=== PATIENT | female | born 1960 | race Caucasian/White ===

== ENCOUNTER 2020-11-28 10:28 | Inpatient (IN) | payer MEDICARE, MEDICAID ==
[~2020-11-28 10:28] MED LIST: Iopamidol-370 76% 500 ML 1 ML ONE
[2020-11-28] MEDS ORDERED: Ondansetron PF 4 MG/2 ML Vial ONE (11:52)
[2020-11-28] MEDS ORDERED: Fentanyl 100 MCG/2 ML VIAL ONE (11:52)
[2020-11-28 11:57] LABS: INR-International Normal Ratio 1.4; PTT 36.9 sec (22.9-36.1); Prothrombin Time 17.8 sec (12.0-14.7)
[2020-11-28 12:06] LABS: Albumin 2.6 g/dL (3.4-4.8)
[2020-11-28 12:07] LABS: Calcium 9.4 mg/dL (7.8-10.44); Chloride 93 mmol/L (98-107); Potassium 5.7 mmol/L (3.5-5.1); Sodium 131 mmol/L (136-145)
[2020-11-28 12:08] LABS: Globulin 3.5 g/dL (2.4-3.5); Glucose 53 mg/dL (80-115); Protein, Total 6.1 g/dL (5.8-8.1)
[2020-11-28 12:09] LABS: Carbon Dioxide 18 mmol/L (23-31)
[2020-11-28 12:10] LABS: Anion Gap 26 mmol/L (10-20); Bilirubin, Total 4.5 mg/dL (0.2-1.2)
[2020-11-28 12:11] LABS: Alkaline Phosphatase 1031 U/L (40-110); Calc. Creatinine Clearance 0 mL/min (70-130)
[2020-11-28 12:12] LABS: BUN (Urea Nitrogen) 45 mg/dL (9.8-20.1)
[2020-11-28 12:13] LABS: AST (SGOT) 915 U/L (5-34); Magnesium 2.4 mg/dL (1.6-2.6)
[2020-11-28 12:14] LABS: ALT (SGPT) 255 U/L (8-55); Lipase 81 U/L (8-78)
[2020-11-28 12:40] LABS: Band 6 % (5-11); Hemoglobin 11.9 g/dL (12.0-16.0); Lymphocytes 8 % (21-51); MDiff Complete? YES; Mean Corpuscular HGB CONC 30.1 g/dL (32.0-36.0); Mean Corpuscular Hemoglobin 27.9 pg (27.0-31.0); Mean Corpuscular Volume 92.5 fL (78.0-98.0); Mean Platelet Volume 8.8 fL (7.4-10.4); Monocytes 6 % (0-10); Neutrophil 80 % (42-75); Platelet Count 260 thou/uL (130-400); RBC Distribution Width 16.2 % (11.5-14.5); Red Blood Cell (RBC) Count 4.26 mill/uL (4.20-5.40); White Blood Cell (WBC) Count 25.6 thou/uL (4.8-10.8)
[2020-11-28] MEDS ORDERED: diphenhydrAMINE 50 MG/ML VIAL ONE (12:41)
[2020-11-28] MEDS ORDERED: Dextrose 50% Abboject 50 ML SYRINGE ONE (12:41)
[2020-11-28] MEDS ORDERED: Famotidine/PF 20 mg/2ml Vial ONE (12:41)
[2020-11-28] MEDS ORDERED: methylPREDNISolone Sod Succ 40 MG VIAL ONE (12:41)
[2020-11-28 13:09] LABS: Alcohol Less than 10 mg/dL (Less than 10)
[2020-11-28 13:12] LABS: Acetaminophen Less than 6.0 mcg/mL (10.0-30.0)
[2020-11-28 13:13] LABS: Salicylate Less than 8.0 mg/dL (15.0-30.0)
[2020-11-28 13:31] LABS: Hep C IgG Ab Non-Reactive (NonReactive); Hep C Index 0.09 S/CO (0-0.79)
[2020-11-28 13:33] LABS: HBCM Index 0.08 S/CO (0-0.79); HBSAg Index 0.22 S/CO (0-0.99); Hep B Surf Ag Non-Reactive S/CO (NonReactive); Hepatitis B Core IgM Abs Non-Reactive (NonReactive)
[2020-11-28 13:51] LABS: Hep A IgM AB Non-Reactive (NonReactive); Hep A IgM S/CO 0.25 S/CO (0-0.79)
[2020-11-28] MEDS ORDERED: Vancomycin 1 GM/200 ML BAG ONE (14:22)
[2020-11-28] MEDS ORDERED: Sodium Bicarbonate 2.5 MEQ/5 ML VIAL ONE (15:27)
[2020-11-28] MEDS ORDERED: Calcium Chloride 1 GM/10 ML Abboject SYRINGE ONE (15:28)
[2020-11-28] MEDS ORDERED: Sodium Bicarb 50 MEQ/50 ML Abboject 8.4% SYRINGE ONE (15:28)
[2020-11-28] MEDS ORDERED: Albumin 25% 25 GM/100 ML BOT IVPB SCH (16:15)
[2020-11-28] MEDS ORDERED: cefTRIAXone\\ROCEPHIN 1 GM VIAL ONE (17:17)
[2020-11-28] MEDS: Sodium Chloride 0.9% 1,000 ML IV SCH (18:16)
[2020-11-28 18:41] LABS: Lactic Acid 4.4 mmol/L (0.5-2.2)
[2020-11-28] MEDS ORDERED: Sodium Chloride 0.9% 250 ML IV SCH (19:15)
[2020-11-28] MEDS: cefTRIAXone\\ROCEPHIN 1 GM in Sodium Chloride 0.9% 100 ML IVPB SCH (19:23)
[2020-11-28 19:57] LABS: Bacteria/HPF 4+ HPF (None Seen); Bilirubin Negative (Negative); Blood, Urine 2+ (Negative); Glucose, Urine (Dipstick) Normal (Negative); Ketone, Urine Negative (Negative); Leukocyte 25 Leu/uL (Negative); Nitrite Negative (Negative); Protein, Urine (Dipstick) 20 mg/dL (Neg-Trace); Specific Gravity, Urine 1.047 (1.002-1.036)
[2020-11-28 19:58] LABS: Clarity Cloudy (Clear); Urine Culture Reflex No No
[2020-11-28] MEDS: Famotidine 20 MG TAB PO SCH (21:56)
[2020-11-28] MEDS: Baclofen 10 MG TAB PO SCH (21:56)
[2020-11-28] MEDS: Pregabalin 75 MG CAP PO SCH (21:56)
[2020-11-29] MEDS ORDERED: Dextrose 50% Abboject 50 ML SYRINGE SLOW IVP PRN (02:12)
[2020-11-29] MEDS ORDERED: Dextrose 5% in Water 1,000 ML IV PRN (02:12)
[2020-11-29] MEDS: Sodium Chloride 0.9% 1,000 ML IV SCH ×2 (05:01→20:12)
[2020-11-29 05:49] LABS: ALT (SGPT) 232 U/L (8-55); AST (SGOT) 919 U/L (5-34); Albumin 2.6 g/dL (3.4-4.8); Alkaline Phosphatase 906 U/L (40-110); Anion Gap 21 mmol/L (10-20); BUN (Urea Nitrogen) 39 mg/dL (9.8-20.1); Bilirubin, Total 4.2 mg/dL (0.2-1.2); Calc. Creatinine Clearance 75 mL/min (70-130); Calcium 9.3 mg/dL (7.8-10.44); Carbon Dioxide 22 mmol/L (23-31); Chloride 95 mmol/L (98-107); Globulin 2.8 g/dL (2.4-3.5); Glucose 63 mg/dL (80-115); Potassium 4.6 mmol/L (3.5-5.1); Protein, Total 5.4 g/dL (5.8-8.1); Sodium 133 mmol/L (136-145)
[2020-11-29 05:57] LABS: Lactic Acid 4.2 mmol/L (0.5-2.2)
[2020-11-29 06:31] LABS: Band 11 % (5-11); Hemoglobin 10.5 g/dL (12.0-16.0); Lymphocytes 6 % (21-51); MDiff Complete? YES; Mean Corpuscular HGB CONC 30.3 g/dL (32.0-36.0); Mean Corpuscular Volume 92.4 fL (78.0-98.0); Metamyelocyte 1 % (0-0); Monocytes 7 % (0-10); Neutrophil 75 % (42-75); Nucleated RBC 1 % (0); Platelet Count 234 thou/uL (130-400); Polychromasia SLIGHT = 2-3 cells (100X) (0-2/hpf); RBC Distribution Width 16.8 % (11.5-14.5); Red Blood Cell (RBC) Count 3.73 mill/uL (4.20-5.40); White Blood Cell (WBC) Count 23.5 thou/uL (4.8-10.8)
[2020-11-29] MEDS: Baclofen 10 MG TAB PO SCH ×2 (08:20→20:11)
[2020-11-29] MEDS: Pregabalin 75 MG CAP PO SCH ×3 (08:20→20:12)
[2020-11-29] MEDS: Famotidine 20 MG TAB PO SCH ×2 (08:21→20:12)
[2020-11-29 08:58] LABS: SARS-CoV-2 PCR by NAA Not Detected (NotDetected)
[2020-11-29] MEDS ORDERED: Sodium Chloride 0.9% 500 ML IV SCH (09:45)
[2020-11-29 10:19] LABS: Lactic Acid 5.3 mmol/L (0.5-2.2)
[2020-11-29 10:20] LABS: ALT (SGPT) 242 U/L (8-55); AST (SGOT) 974 U/L (5-34); Albumin 2.6 g/dL (3.4-4.8); Alkaline Phosphatase 907 U/L (40-110); Bilirubin, Direct 3.4 mg/dL (0.1-0.3); Bilirubin, Total 4.1 mg/dL (0.2-1.2); Protein, Total 5.8 g/dL (5.8-8.1)
[2020-11-29] MEDS: cefTRIAXone\\ROCEPHIN 1 GM in Sodium Chloride 0.9% 100 ML IVPB SCH (17:46)
[2020-11-29] MEDS: Acetaminophen/Codeine 30-300mg Tablet PO PRN (20:53)
[2020-11-30] MEDS: Acetaminophen/Codeine 30-300mg Tablet PO PRN (04:59)
[2020-11-30 05:35] LABS: ALT (SGPT) 18 U/L (8-55); AST (SGOT) 20 U/L (5-34); Albumin 3.3 g/dL (3.4-4.8); Alkaline Phosphatase 77 U/L (40-110); Anion Gap 10 mmol/L (10-20); BUN (Urea Nitrogen) 6 mg/dL (9.8-20.1); Calc. Creatinine Clearance 97 mL/min (70-130); Calcium 8.1 mg/dL (7.8-10.44); Carbon Dioxide 24 mmol/L (23-31); Chloride 112 mmol/L (98-107); Globulin 2.4 g/dL (2.4-3.5); Glucose 88 mg/dL (80-115); Potassium 4.3 mmol/L (3.5-5.1); Protein, Total 5.7 g/dL (5.8-8.1); Sodium 142 mmol/L (136-145)
[2020-11-30 05:36] LABS: Lactic Acid 4.7 mmol/L (0.5-2.2)
[2020-11-30 06:42] LABS: Anisocytosis SLIGHT = 6-15 cells (100X) (0-5/hpf); Band 12 % (5-11); Hemoglobin 11.6 g/dL (12.0-16.0); Lymphocytes 10 % (21-51); MDiff Complete? YES; Mean Corpuscular HGB CONC 29.5 g/dL (32.0-36.0); Mean Corpuscular Hemoglobin 27.1 pg (27.0-31.0); Mean Platelet Volume 8.5 fL (7.4-10.4); Monocytes 4 % (0-10); Neutrophil 74 % (42-75); Platelet Count 209 thou/uL (130-400); RBC Distribution Width 17.3 % (11.5-14.5); Red Blood Cell (RBC) Count 4.27 mill/uL (4.20-5.40); White Blood Cell (WBC) Count 24.8 thou/uL (4.8-10.8)
[2020-11-30] MEDS: Baclofen 10 MG TAB PO SCH ×2 (08:28→21:35)
[2020-11-30] MEDS: Pregabalin 75 MG CAP PO SCH ×3 (08:28→21:35)
[2020-11-30] MEDS: Famotidine 20 MG TAB PO SCH ×2 (08:28→21:35)
[2020-11-30] MEDS: Sodium Chloride 0.9% 1,000 ML IV SCH (08:51)
[2020-11-30] MEDS ORDERED: traMADol HCl 50 MG TAB PO PRN (10:18)
[2020-11-30] MEDS: cefTRIAXone\\ROCEPHIN 1 GM in Sodium Chloride 0.9% 100 ML IVPB SCH (18:02)
[2020-11-30] MEDS: HYDROcodone/Acetaminophen 5/325 mg Tablet PO PRN (21:35)
[2020-12-01] MEDS: HYDROcodone/Acetaminophen 5/325 mg Tablet PO PRN (02:46)
[2020-12-01 06:15] VITALS: BMI 32.1
[2020-12-01 08:06] VITALS: TEMP 98
[2020-12-01 08:33] LABS: Hemoglobin 12.1 g/dL (12.0-16.0); Mean Corpuscular HGB CONC 30.8 g/dL (32.0-36.0); Mean Corpuscular Hemoglobin 28.7 pg (27.0-31.0); Mean Corpuscular Volume 92.9 fL (78.0-98.0); Mean Platelet Volume 9.7 fL (7.4-10.4); Platelet Count 132 thou/uL (130-400); RBC Distribution Width 18.2 % (11.5-14.5); Red Blood Cell (RBC) Count 4.22 mill/uL (4.20-5.40); White Blood Cell (WBC) Count 26.1 thou/uL (4.8-10.8)
[2020-12-01 08:49] LABS: Lactic Acid 11.6 mmol/L (0.5-2.2)
[2020-12-01 08:53] LABS: Band 17 % (5-11); Lymphocytes 8 % (21-51); MDiff Complete? YES; Metamyelocyte 1 % (0-0); Monocytes 9 % (0-10); Myelocyte 2 % (0-0); Neutrophil 63 % (42-75); Nucleated RBC 5 % (0); Platelet Morphology Comment Appears Adequate; Polychromasia MODERATE = 3-4 cells (100X) (0-2/hpf)
[2020-12-01] MEDS ORDERED: Sodium Chloride 0.9% 1,000 ML IV SCH (09:15)
[2020-12-01 10:20] LABS: ALT (SGPT) 758 U/L (8-55); AST (SGOT) Greater than 3500 U/L (5-34); Albumin 2.7 g/dL (3.4-4.8); Alkaline Phosphatase 1106 U/L (40-110); Anion Gap 33 mmol/L (10-20); BUN (Urea Nitrogen) 41 mg/dL (9.8-20.1); Bilirubin, Total 8.7 mg/dL (0.2-1.2); Calc. Creatinine Clearance 62 mL/min (70-130); Calcium 8.8 mg/dL (7.8-10.44); Carbon Dioxide 9 mmol/L (23-31); Chloride 97 mmol/L (98-107); Globulin 3.3 g/dL (2.4-3.5); Glucose 101 mg/dL (80-115); Sodium 131 mmol/L (136-145)
[2020-12-01] MEDS ORDERED: Sodium Bicarbonate 150 MEQ in Dextrose 5% in Water 1,000 ML IV SCH (11:00)
[2020-12-01] MEDS ORDERED: Sodium Bicarb 50 MEQ/50 ML Abboject 8.4% SYRINGE ONE (11:06)
[2020-12-01] MEDS ORDERED: Sodium Bicarb 50 MEQ/50 ML Abboject 8.4% SYRINGE IVP SCH (11:15)
[2020-12-01 11:19] LABS: ALT (SGPT) 792 U/L (8-55); Albumin 2.5 g/dL (3.4-4.8); Alkaline Phosphatase 1098 U/L (40-110); Anion Gap 32 mmol/L (10-20); BUN (Urea Nitrogen) 44 mg/dL (9.8-20.1); Bilirubin, Total 8.7 mg/dL (0.2-1.2); Calc. Creatinine Clearance 59 mL/min (70-130); Calcium 8.6 mg/dL (7.8-10.44); Carbon Dioxide 10 mmol/L (23-31); Chloride 97 mmol/L (98-107); Globulin 3.1 g/dL (2.4-3.5); Glucose 115 mg/dL (80-115); Protein, Total 5.6 g/dL (5.8-8.1); Sodium 131 mmol/L (136-145)
[2020-12-01 11:20] LABS: AST (SGOT) Greater than 3500 U/L (5-34)
[2020-12-01 11:39] LABS: Phosphorus 6.9 mg/dL (2.3-4.7)
[2020-12-01 12:14] LABS: CK (CPK) 5546 U/L (29-168); Uric Acid 17.8 mg/dL (2.6-6.0)
[2020-12-01 12:38] VITALS: BP 97/57
[2020-12-01] MEDS: Famotidine 20 MG TAB PO SCH (12:50)
[2020-12-01] MEDS: Baclofen 10 MG TAB PO SCH (12:50)
[2020-12-01] MEDS: Pregabalin 75 MG CAP PO SCH (12:50)
== END 2020-12-01 13:01 | disposition hospice, inpatient (51) | DRG 435 ==
LOC: ERS 10:28 → 2NO 15:58
PROVIDERS: ADMIT Internal Medicine; ATTEND Internal Medicine
DX: C22.0 Liver cell carcinoma (principal); G93.41 Metabolic encephalopathy; E88.3 Tumor lysis syndrome; E87.2 Acidosis; E87.1 Hypo-osmolality and hyponatremia; Z20.822 Contact with and (suspected) exposure to COVID-19; J44.9 Chronic obstructive pulmonary disease, unspecified; I50.9 Heart failure, unspecified; G89.29 Other chronic pain; M54.9 Dorsalgia, unspecified; F17.210 Nicotine dependence, cigarettes, uncomplicated; E86.0 Dehydration; E87.5 Hyperkalemia; I11.0 Hypertensive heart disease with heart failure; R13.10 Dysphagia, unspecified; K74.60 Unspecified cirrhosis of liver; E16.2 Hypoglycemia, unspecified; R74.01 Elevation of levels of liver transaminase levels; Z91.041 Radiographic dye allergy status; Z79.899 Other long term (current) drug therapy; Z88.8 Allergy status to other drugs, medicaments and biological substances; Z87.11 Personal history of peptic ulcer disease
CPT/HCPCS: 36415; 36416; 70450; 71250; 74177; 76705; 80053; 80074; 80307; 81001; 82105; 82140; 82378; 82550; 83605; 83615; 83690; 83735; 83880; 84100; 84443; 84484; 84550; 85025; 85610; 85730; 87040; 87077; 87086; 87186; 93005; 93010; 96374; 96375; J0696; J1200; J2405; J2920; J3010; J3370; J3490; J7030; J7050; J7070; P9047; Q9967; S0028; U0003; U0005

== ENCOUNTER 2020-12-01 13:14 | Inpatient (IN) | payer OTHER ==
[2020-12-01] MEDS ORDERED: Lorazepam 2 MG/ML VIAL SLOW IVP PRN (13:56)
[2020-12-01] MEDS ORDERED: Morphine 2 MG/ML VIAL SLOW IVP PRN (13:58)
[2020-12-01] MEDS ORDERED: Bisacodyl 10 MG SUPP PR PRN (13:59)
[2020-12-01] MEDS ORDERED: Hyoscyamine Sulfate SL 0.125 mg Tablet SL PRN (14:00)
[2020-12-01] MEDS ORDERED: Haloperidol Lactate 5 MG/ML VIAL SLOW IVP PRN (14:00)
[2020-12-01] MEDS ORDERED: Scopolamine 1.5 mg/72 hour Patch TOP PRN (14:00)
[2020-12-01] MEDS ORDERED: Ondansetron PF 4 MG/2 ML Vial IVP PRN (14:00)
[2020-12-01] MEDS: Morphine 4 MG/ML VIAL SLOW IVP SCH ×2 (14:31→17:10)
[2020-12-01] MEDS ORDERED: Lorazepam 2 MG/ML VIAL SLOW IVP SCH (17:00)
== END 2020-12-01 17:35 | disposition expired | DRG 951 ==
LOC: 2NO 13:14
PROVIDERS: ADMIT Family Medicine; ATTEND Family Medicine
DX: Z51.5 Encounter for palliative care (principal); K72.00 Acute and subacute hepatic failure without coma; E88.3 Tumor lysis syndrome; C78.7 Secondary malignant neoplasm of liver and intrahepatic bile duct; E87.2 Acidosis; E87.5 Hyperkalemia; I10 Essential (primary) hypertension
CPT/HCPCS: J2270